=== PATIENT | male | born 1980 | race Caucasian/White ===

== ENCOUNTER 2020-10-12 21:42 | Observation (INO) ==
[2020-10-12] MEDS ORDERED: Isovue-370 500 ML BOTTLE IVP ONE (22:02)
[2020-10-12] MEDS ORDERED: 0.9 % Sodium Chloride 1,000 ML IVC ONE (22:03)
[2020-10-12] MEDS ORDERED: Morphine Sulfate 2 MG/ML SYRINGE IVP ONE ×2 (22:03→23:31)
[2020-10-12] MEDS ORDERED: Ondansetron 4 MG/2 ML VIAL IVP ONE (22:19)
[2020-10-12] MEDS ORDERED: Ondansetron 4 MG/2 ML VIAL ONE (22:20)
[2020-10-12 22:28] LABS: Basophils % 0.3 %; Eosinophils # 0.1 K/mcL (0.0-0.6); Eosinophils % 1.7 %; Hematocrit 39.1 % (37.5-50.1); Hemoglobin 13.1 g/dL (12.9-16.9); Immature Granulocytes % 0.4 % (0-4); Lymphocytes # 0.8 K/mcL (0.6-4.6); Lymphocytes % 10.7 %; Mean Corpuscular HGB Conc 33.5 g/dL (31.6-35.5); Mean Corpuscular Hemoglobin 30.2 pg (28.0-33.3); Mean Corpuscular Volume 90.1 fL (83.0-100.0); Mean Platelet Volume 9.7 fL (9.4-12.4); Monocytes # 0.6 K/mcL (0.0-1.3); Monocytes % 8.3 %; Neutrophils # 6.1 K/mcL (1.6-8.9); Platelet Count 172 K/mcL (140-400); Red Blood Count 4.34 M/mcL (4.19-5.50); Segmented Neutrophils % 78.6 %; White Blood Count 7.8 K/mcL (4.3-11.1)
[2020-10-12 22:29] LABS: Bilirubin,Urine Negative (Negative); Blood,Urine Small (Negative); Clarity,Urine Clear (Clear); Color,Urine Light-Yellow (Yellow); Glucose,Urine (UA) Normal (Normal); Ketones,Urine 10 mg/dL (Negative); Leukocyte Esterase,Urine Negative (Negative); Nitrite,Urine Negative (Negative); Protein,Urine Trace mg/dL (Neg-Trace); Specific Gravity,Urine 1.027 (1.010-1.025); Squamous Epithelial Cell,Urine Few per hpf (None-Few); Urobilinogen,Urine Normal (Normal); WBC,Urine 0-3 per hpf (0-3)
[2020-10-12 22:48] LABS: Alanine Aminotransferase 30 Units/L (7-52); Albumin/Globulin Ratio 1.5 (1.1-2.2); Alkaline Phosphatase 43 Units/L (34-104); Aspartate Amino Transferase 23 Units/L (13-39); BUN/Creatinine Ratio 18 (6-26); Bilirubin,Direct 0.2 mg/dL (0.0-0.2); Bilirubin,Indirect 1.4 mg/dL (0.0-1.0); Bilirubin,Total 1.6 mg/dL (0.3-1.0); Blood Urea Nitrogen 23 mg/dL (6-20); Calcium 9.1 mg/dL (8.6-10.3); Carbon Dioxide 28 mEq/L (23-29); Chloride 102 mEq/L (98-107); Globulin 2.6 g/dL (2.4-3.5); Glucose 108 mg/dL (70-105); Lipase 7 Units/L (11-82); Osmolality,Calculated 288 (280-300); Potassium 3.8 mEq/L (3.5-5.1); Sodium 137 mEq/L (136-145); Total Protein 6.6 g/dL (6.4-8.9); eGFR For African Americans > 60 (> 60); eGFR For Non-African Americans > 60 (> 60)
[2020-10-13] MEDS ORDERED: *HR* HYDROcodone/Acet 5/325 mg TABLET PO PRN ×3 (02:03→17:36)
[2020-10-13] MEDS ORDERED: *HR* OxyCODONE Immed Rel 5 MG TABLET PO PRN ×2 (02:03→17:36)
[2020-10-13] MEDS ORDERED: Naloxone 0.4 MG/ML INJ IVP PRN ×2 (02:03→17:36)
[2020-10-13] MEDS ORDERED: Ondansetron 4 MG/2 ML VIAL IVP PRN ×2 (02:03→17:36)
[2020-10-13] MEDS: 0.9 % Sodium Chloride 1,000 ML IVC SCH ×2 (02:25→10:42)
[2020-10-13 06:31] LABS: Basophils % 0.3 %; Eosinophils # 0.1 K/mcL (0.0-0.6); Eosinophils % 0.8 %; Hemoglobin 13.5 g/dL (12.9-16.9); Immature Granulocytes % 0.3 % (0-4); Lymphocytes # 0.8 K/mcL (0.6-4.6); Lymphocytes % 10.1 %; Mean Corpuscular HGB Conc 32.9 g/dL (31.6-35.5); Mean Corpuscular Hemoglobin 31.2 pg (28.0-33.3); Mean Corpuscular Volume 94.7 fL (83.0-100.0); Mean Platelet Volume 9.9 fL (9.4-12.4); Monocytes # 0.6 K/mcL (0.0-1.3); Monocytes % 8.2 %; Neutrophils # 6.2 K/mcL (1.6-8.9); Platelet Count 176 K/mcL (140-400); Red Blood Count 4.33 M/mcL (4.19-5.50); Segmented Neutrophils % 80.3 %; White Blood Count 7.7 K/mcL (4.3-11.1)
[2020-10-13 06:32] LABS: INR 1.1; Prothrombin Time 12.6 Seconds (9.4-12.1)
[2020-10-13 06:35] LABS: Activated Partial Thrombo Time 31.9 Seconds (26.0-36.0)
[2020-10-13 06:47] LABS: Alanine Aminotransferase 27 Units/L (7-52); Albumin 4.1 g/dL (3.5-5.7); Albumin/Globulin Ratio 1.6 (1.1-2.2); Alkaline Phosphatase 42 Units/L (34-104); Aspartate Amino Transferase 23 Units/L (13-39); BUN/Creatinine Ratio 16 (6-26); Bilirubin,Total 2.2 mg/dL (0.3-1.0); Blood Urea Nitrogen 19 mg/dL (6-20); Calcium 8.7 mg/dL (8.6-10.3); Carbon Dioxide 27 mEq/L (23-29); Chloride 104 mEq/L (98-107); Chol/HDL Ratio 3.5 (0-4.9); Cholesterol 197 mg/dL (< 200); Globulin 2.5 g/dL (2.4-3.5); Glucose 106 mg/dL (70-105); HDL Cholesterol 57 mg/dL (40-59); LDL Cholesterol,Calculated 130 mg/dL (< 100); Magnesium 1.9 mg/dL (1.6-2.6); Osmolality,Calculated 285 (280-300); Phosphorous 3.1 mg/dL (2.7-4.5); Potassium 4.2 mEq/L (3.5-5.1); Sodium 136 mEq/L (136-145); Total Protein 6.6 g/dL (6.4-8.9); Triglycerides 50 mg/dL (< 150); eGFR For African Americans > 60 (> 60); eGFR For Non-African Americans > 60 (> 60)
[2020-10-13 11:10] LABS: Adenovirus Not Detected (Not Detect); Bordetella Pertussis Not Detected (Not Detect); Chlamydophila pneumoniae Not Detected (Not Detect); Coronavirus 229E Not Detected (Not Detect); Coronavirus HKU1 Not Detected (Not Detect); Coronavirus NL63 Not Detected (Not Detect); Coronavirus OC43 Not Detected (Not Detect); Human Metapneumovirus Not Detected (Not Detect); Human Rhinovirus/Enterovirus Not Detected (Not Detect); Influenza A Subtype 2009 H1 Not Detected (Not Detect); Influenza B Not Detected (Not Detect); Mycoplasma pneumoniae Not Detected (Not Detect); Parainfluenza Virus 1 Not Detected (Not Detect); Parainfluenza Virus 2 Not Detected (Not Detect); Parainfluenza Virus 3 Not Detected (Not Detect); Parainfluenza Virus 4 Not Detected (Not Detect); Respiratory Syncytial Virus Not Detected (Not Detect); SARS-CoV-2 Not Detected (Not Detect)
[2020-10-13] MEDS ORDERED: Isovue-300 50ML VIAL ONE (13:40)
[2020-10-13] MEDS ORDERED: *HR* FentaNYL (PF) 100 MCG/2 ML VIAL ONE (13:42)
[2020-10-13] MEDS ORDERED: *HR* Propofol 200 MG/20 ML VIAL IVP ONE (13:42)
[2020-10-13] MEDS ORDERED: Lidocaine -MPF 2% 2 ML VIAL ONE (13:46)
[2020-10-13] MEDS ORDERED: Ondansetron 4 MG/2 ML VIAL ONE (14:00)
[2020-10-13] MEDS ORDERED: Dexamethasone 4 MG/ML VIAL ONE (14:00)
[2020-10-13] MEDS ORDERED: *HR* HYDROmorphone PF 0.5 MG/0.5 ML SYRINGE IVP PRN (14:18)
[2020-10-13] MEDS ORDERED: *HR* Midazolam HCl 2 MG/2 ML VIAL ONE (14:20)
[2020-10-13] MEDS ORDERED: Scopolamine Patch 1.5 MG PATCH.TD72 ONE (14:23)
[2020-10-13] MEDS ORDERED: 0.9 % Sodium Chloride 1,000 ML IVC SCH (17:36)
[2020-10-13 18:06] VITALS: BP 112/58
[2020-10-20 10:45] LABS: Calculi Mass 17 mg
== END 2020-10-13 18:50 | disposition home or self-care (01) ==
LOC: 3ANU 21:42 → EMEROOARM 21:42 → SUATTDRO 10-13 00:38 → 3ANU 10-13 01:25
PROVIDERS: ADMIT Internal Medicine Nephrology; ATTEND Internal Medicine
PROC: UROLITH (2020-10-13 19:45)